=== PATIENT | female | born 1995 | race Caucasian/White ===

== ENCOUNTER 2018-11-07 13:13 | Emergency (ER) | payer OTHER ==
[~2018-11-07 13:13] MED LIST: CEPH250C37 PO; [UNRECOGNIZED DRUG - CODE]
[2018-11-07] MEDS ORDERED: NS(*) 0.9% 1000 ML BAG 1,000 ML IV ONE (13:29)
[2018-11-07] MEDS ORDERED: ONDANSETRON 4 MG/2 ML VIAL IVP ONE (13:30)
--- NOTE | 2018-11-07 14:03 | ER Report ---
History and Physical Time Seen By MD: 14:03 Hx. of Stated Complaint: NAUSEA, VOMITING AND DIARRHEA THAT STARTED AROUND 2 HOURS AGO. Allergies: Coded Allergies: No Known Drug Allergies (Unverified , 11/07/18) Home Meds Active Scripts Cephalexin (KEFLEX) 250 Mg Capsule, 2 TAB PO QID for 10 Days, #40 CAPSULE 0 Refills Take two 250 mg capsules four times daily x10 days. Prov:GABRIELLE WHITEHEAD DNP, PARTS IDENTIFICATION TECHNICIAN-BC 09/28/18 Reported Medications Vit/Iron Fumarate/FA ( Tablet) Unknown Strength Tablet, DAILY 09/28/18 Constitutional Vital Sign - Last 24 Hours 11/07/18 13:20 Temp 97.7 Pulse 87 Resp 24 B/P (MAP) 101/46 Pulse Ox 95 O2 Delivery Room Air Medical Decision Making Data Points Laboratory Hematology Test 11/07/18 13:20 11/07/18 13:57 Urine Color Red Urine Clarity Cloudy Urine pH 6 pH (4.8-9.5) Urine Specific Brush 1.030 Urine Protein 100 mg/dL (NEGATIVE) Urine Glucose (UA) Negative mg/dL (NEGATIVE) Urine Ketones 80 mg/dL (NEGATIVE) Urine Blood Large (NEGATIVE) Urine Nitrite Negative (NEGATIVE) Urine Bilirubin Negative (NEGATIVE) Urine Urobilinogen 0.2 mg/dL (0.2-1.9) Urine Leukocyte Esterase Negative (NEGATIVE) Urine RBC Tntc /HPF (0-2/HPF) Urine WBC None /HPF (0-5/HPF) Urine Squamous Epithelial Cells Moderate /LPF (</=FEW) Urine Transitional Epithelial Cells /LPF (NONE-FEW) Urine Bacteria Few /HPF (NONE-FEW) Urine Mucus Rare /HPF (NONE-FEW) Chemistry Test 11/07/18 13:20 11/07/18 13:57 Urine Color Red Urine Clarity Cloudy Urine pH 6 pH (4.8-9.5) Urine Specific Brush 1.030 Urine Protein 100 mg/dL (NEGATIVE) Urine Glucose (UA) Negative mg/dL (NEGATIVE) Urine Ketones 80 mg/dL (NEGATIVE) Urine Blood Large (NEGATIVE) Urine Nitrite Negative (NEGATIVE) Urine Bilirubin Negative (NEGATIVE) Urine Urobilinogen 0.2 mg/dL (0.2-1.9) Urine Leukocyte Esterase Negative (NEGATIVE) Urine RBC Tntc /HPF (0-2/HPF) Urine WBC None /HPF (0-5/HPF) Urine Squamous Epithelial Cells Moderate /LPF (</=FEW) Urine Transitional Epithelial Cells /LPF (NONE-FEW) Urine Bacteria Few /HPF (NONE-FEW) Urine Mucus Rare /HPF (NONE-FEW) Urinalysis Test 11/07/18 13:20 Urine Color Red Urine Clarity Cloudy Urine pH 6 pH (4.8-9.5) Urine Specific Brush 1.030 Urine Protein 100 mg/dL (NEGATIVE) Urine Glucose (UA) Negative mg/dL (NEGATIVE) Urine Ketones 80 mg/dL (NEGATIVE) Urine Blood Large (NEGATIVE) Urine Nitrite Negative (NEGATIVE) Urine Bilirubin Negative (NEGATIVE) Urine Urobilinogen 0.2 mg/dL (0.2-1.9) Urine Leukocyte Esterase Negative (NEGATIVE) Urine RBC Tntc /HPF (0-2/HPF) Urine WBC None /HPF (0-5/HPF) Urine Squamous Epithelial Cells Moderate /LPF (</=FEW) Urine Transitional Epithelial Cells /LPF (NONE-FEW) Urine Bacteria Few /HPF (NONE-FEW) Urine Mucus Rare /HPF (NONE-FEW) Depart Departure Latest Vital Signs Vital Signs Date Time Temp Pulse Resp B/P (MAP) Pulse Ox O2 Delivery O2 Flow Rate FiO2 11/07/18 13:20 97.7 87 24 101/46 95 Room Air Condition: Stable Disposition: HOME OR SELF-CARE Referrals: SHUBHAM ORONA MD (PCP) JOSE GRIFFIN Nov 07, 2018 14:03
[2018-11-07] MEDS ORDERED: fentaNYL CITR 100 MCG/2 ML AMP IVP ONE (14:05)
--- NOTE | 2018-11-07 14:08 | ER Report ---
History and Physical Time Seen By MD: 14:05 Hx. of Stated Complaint: NAUSEA, VOMITING AND DIARRHEA THAT STARTED AROUND 2 HOURS AGO. HPI/ROS CHIEF COMPLAINT: Right-sided abdominal pain HISTORY OF PRESENT ILLNESS: Patient is a 23-year-old female here with complaints of 2-3 hours of right-sided abdominal pain, associated nausea, diarrhea. Patient is afebrile at time of evaluation, dehydrated appearing. Patient is hemodynamically stable at this time and denies prior abdominal surgeries. Denies blood in the stools and is currently menstruating. Denies chest pain, shortness breath REVIEW OF SYSTEMS: Constitutional: No fever, + chills. Eyes: No discharge. ENT: No sore throat. Cardiovascular: No chest pain, no palpitations. Respiratory: No cough, no shortness of breath. Gastrointestinal: + right sided abdominal pain, + nausea Genitourinary: + menstruating Musculoskeletal: No back pain. Skin: No rashes. Neurological: No headache. Allergies: Coded Allergies: No Known Drug Allergies (Unverified , 11/07/18) Home Meds Active Scripts Metoclopramide Hcl (REGLAN) 10 Mg Tablet, 10 MG PO Q8H PRN for NAUSEA/VOMITING, #20 TAB Prov:CHLOE WARE DO 11/07/18 Cephalexin (KEFLEX) 250 Mg Capsule, 2 TAB PO QID for 10 Days, #40 CAPSULE 0 Refills Take two 250 mg capsules four times daily x10 days. Prov:GABRIELLE WHITEHEAD DNP, SALES MANAGER [employer] 09/28/18 Reported Medications Vit/Iron Fumarate/FA ( Tablet) Unknown Strength Tablet, DAILY 09/28/18 Constitutional Physical Exam General Appearance: The patient is alert, has no immediate need for airway protection and no signs of toxicity. Nontoxic in appearance Eyes: Pupils equal and round no pallor or injection. ENT, Mouth: Mucous membranes are dry, Respiratory: There are no retractions, lungs are clear to auscultation. Cardiovascular: Regular rate and rhythm. Gastrointestinal: Abdomen is soft and + tender in the right upper abdomen and midepigastric region, no masses, bowel sounds normal. Neurological: No focal neurological deficits Skin: Warm and dry, no rashes. Musculoskeletal: Neck is supple non tender. Extremities are nontender, nonswollen and have full range of motion. DIFFERENTIAL DIAGNOSIS: After history and physical exam differential diagnosis was considered for abdominal pain including but not limited to appendicitis, cholecystitis, gastritis and urinary tract infection. Medical Decision Making Data Points Laboratory Hematology Test 11/07/18 13:20 11/07/18 13:57 Urine Color Red Urine Clarity Cloudy Urine pH 6 pH (4.8-9.5) Urine Specific Crawford 1.030 Urine Protein 100 mg/dL (NEGATIVE) Urine Glucose (UA) Negative mg/dL (NEGATIVE) Urine Ketones 80 mg/dL (NEGATIVE) Urine Blood Large (NEGATIVE) Urine Nitrite Negative (NEGATIVE) Urine Bilirubin Negative (NEGATIVE) Urine Urobilinogen 0.2 mg/dL (0.2-1.9) Urine Leukocyte Esterase Negative (NEGATIVE) Urine RBC Tntc /HPF (0-2/HPF) Urine WBC None /HPF (0-5/HPF) Urine Squamous Epithelial Cells Moderate /LPF (</=FEW) Urine Transitional Epithelial Cells /LPF (NONE-FEW) Urine Bacteria Few /HPF (NONE-FEW) Urine Mucus Rare /HPF (NONE-FEW) Red Blood Count 4.78 M/uL (4.17-5.56) Mean Corpuscular Volume 90.5 fL (80.0-96.0) Mean Corpuscular Hemoglobin 30.8 pg (26.0-33.0) Mean Corpuscular Hemoglobin Concent 34.0 g/dL (32.0-36.0) Red Cell Distribution Width 13.2 % (11.5-14.5) Mean Platelet Volume 8.6 fL (7.2-11.1) Neutrophils (%) (Auto) 91.9 % (39.4-72.5) Lymphocytes (%) (Auto) 2.6 % (17.6-49.6) Monocytes (%) (Auto) 5.3 % (4.1-12.4) Eosinophils (%) (Auto) 0.1 % (0.4-6.7) Basophils (%) (Auto) 0.1 % (0.3-1.4) Nucleated RBC Relative Count (auto) 0.0 /100WBC Neutrophils # (Auto) 8.0 K/uL (2.0-7.4) Lymphocytes # (Auto) 0.2 K/uL (1.3-3.6) Monocytes # (Auto) 0.5 K/uL (0.3-1.0) Eosinophils # (Auto) 0.0 K/uL (0.0-0.5) Basophils # (Auto) 0.0 K/uL (0.0-0.1) Nucleated RBC Absolute Count (auto) 0.00 K/uL Sodium Level 141 mmol/L (137-145) Potassium Level 4.1 mmol/L (3.5-5.0) Chloride Level 112 mmol/L (98-107) Carbon Dioxide Level 17 mmol/L (22-31) Blood Urea Nitrogen 19 mg/dl (7-18) Creatinine 0.70 mg/dl (0.52-1.04) Glomerular Filtration Rate Calc > 60.0 Random Glucose 89 mg/dl (75-110) Calcium Level 8.9 mg/dl (8.4-10.2) Total Bilirubin 1.6 mg/dl (0.2-1.3) Aspartate Amino Transf (AST/SGOT) 24 U/L (0-35) Alanine Aminotransferase (ALT/SGPT) 23 U/L (0-56) Alkaline Phosphatase 92 U/L (0-126) Total Protein 7.5 g/dl (6.3-8.2) Albumin 4.3 g/dl (3.5-5.0) Lipase 178 U/L (23-300) Human Chorionic Gonadotropin, Qual Negative (NEGATIVE) Chemistry Test 11/07/18 13:20 11/07/18 13:57 Urine Color Red Urine Clarity Cloudy Urine pH 6 pH (4.8-9.5) Urine Specific Crawford 1.030 Urine Protein 100 mg/dL (NEGATIVE) Urine Glucose (UA) Negative mg/dL (NEGATIVE) Urine Ketones 80 mg/dL (NEGATIVE) Urine Blood Large (NEGATIVE) Urine Nitrite Negative (NEGATIVE) Urine Bilirubin Negative (NEGATIVE) Urine Urobilinogen 0.2 mg/dL (0.2-1.9) Urine Leukocyte Esterase Negative (NEGATIVE) Urine RBC Tntc /HPF (0-2/HPF) Urine WBC None /HPF (0-5/HPF) Urine Squamous Epithelial Cells Moderate /LPF (</=FEW) Urine Transitional Epithelial Cells /LPF (NONE-FEW) Urine Bacteria Few /HPF (NONE-FEW) Urine Mucus Rare /HPF (NONE-FEW) White Blood Count 8.7 k/uL (4.5-11.0) Red Blood Count 4.78 M/uL (4.17-5.56) Hemoglobin 14.7 g/dL (12.0-16.0) Hematocrit 43.2 % (34.0-47.0) Mean Corpuscular Volume 90.5 fL (80.0-96.0) Mean Corpuscular Hemoglobin 30.8 pg (26.0-33.0) Mean Corpuscular Hemoglobin Concent 34.0 g/dL (32.0-36.0) Red Cell Distribution Width 13.2 % (11.5-14.5) Platelet Count 179 K/uL (150-450) Mean Platelet Volume 8.6 fL (7.2-11.1) Neutrophils (%) (Auto) 91.9 % (39.4-72.5) Lymphocytes (%) (Auto) 2.6 % (17.6-49.6) Monocytes (%) (Auto) 5.3 % (4.1-12.4) Eosinophils (%) (Auto) 0.1 % (0.4-6.7) Basophils (%) (Auto) 0.1 % (0.3-1.4) Nucleated RBC Relative Count (auto) 0.0 /100WBC Neutrophils # (Auto) 8.0 K/uL (2.0-7.4) Lymphocytes # (Auto) 0.2 K/uL (1.3-3.6) Monocytes # (Auto) 0.5 K/uL (0.3-1.0) Eosinophils # (Auto) 0.0 K/uL (0.0-0.5) Basophils # (Auto) 0.0 K/uL (0.0-0.1) Nucleated RBC Absolute Count (auto) 0.00 K/uL Glomerular Filtration Rate Calc > 60.0 Calcium Level 8.9 mg/dl (8.4-10.2) Total Bilirubin 1.6 mg/dl (0.2-1.3) Aspartate Amino Transf (AST/SGOT) 24 U/L (0-35) Alanine Aminotransferase (ALT/SGPT) 23 U/L (0-56) Alkaline Phosphatase 92 U/L (0-126) Total Protein 7.5 g/dl (6.3-8.2) Albumin 4.3 g/dl (3.5-5.0) Lipase 178 U/L (23-300) Human Chorionic Gonadotropin, Qual Negative (NEGATIVE) Urinalysis Test 11/07/18 13:20 Urine Color Red Urine Clarity Cloudy Urine pH 6 pH (4.8-9.5) Urine Specific Crawford 1.030 Urine Protein 100 mg/dL (NEGATIVE) Urine Glucose (UA) Negative mg/dL (NEGATIVE) Urine Ketones 80 mg/dL (NEGATIVE) Urine Blood Large (NEGATIVE) Urine Nitrite Negative (NEGATIVE) Urine Bilirubin Negative (NEGATIVE) Urine Urobilinogen 0.2 mg/dL (0.2-1.9) Urine Leukocyte Esterase Negative (NEGATIVE) Urine RBC Tntc /HPF (0-2/HPF) Urine WBC None /HPF (0-5/HPF) Urine Squamous Epithelial Cells Moderate /LPF (</=FEW) Urine Transitional Epithelial Cells /LPF (NONE-FEW) Urine Bacteria Few /HPF (NONE-FEW) Urine Mucus Rare /HPF (NONE-FEW) EKG/Imaging Imaging PATIENT NAME: Araceli Snider : 1995 MR: [id number] V: [id number] EXAM DATE: [id number] ORDERING PHYSICIAN: CHLOE WARE TECHNOLOGIST: Location: [facility] [place] Patient: Araceli Sniedr : 1995 Visit/Account:[id number] Date of Sevice: 11/07/2018 ABDOMEN/PELVIS WITH CONTRAST HISTORY: Right lower quadrant pain with sudden onset x3 hours TECHNIQUE: Following administration of IV contrast contiguous axial images acquired through the abdomen/pelvis. Coronal and sagittal reformatting also performed.Dose Lowering Technique One of the following dose optimization techniques was utilized in the performa nce of this exam: Automated exposure control; adjustment of the mA and/or kV according to the patient's size; or use of an iterative reconstruction technique. Specific details can be referenced in the facility's radiology CT exam operational policy. CONTRAST: 75 mL Isovue-370 COMPARISON: None. FINDINGS: Visualized lung bases: Negative. Hepatobiliary: Negative. Spleen: Negative. Adrenals: Negative. Pancreas: Negative. Kidneys ureters or bladder: Kidneys appear grossly unremarkable. Bladder is mostly decompressed therefore not ideally evaluated Genitalia: There is a retroverted uterus containing an IUD GI: The appendix is not well seen. By history the patient's pain is more mid right abdomen and the white count is not elevated Vessels/spaces/nodes: There are numerous collateral vessels in the pelvis Bones/soft tissues: There is an incidental pectus excavatum deformity the anterior chest wall Additional findings: None pertinent. IMPRESSION: No evidence of urolithiasis or hydronephrosis Numerous collateral vessels are noted in the pelvis The appendix is not well seen due to a paucity of internal fat planes. By history however the patient's pain is more mid right abdomen and white count is not elevated therefore appendicitis seems less likely Report Dictated By: Carolyn Vanegas MD at 11/07/2018 2:49 PM Report E-Signed By: Carolyn Vanegas MD at 11/07/2018 2:58 PM WSN:[email or web address] ED Course/Re-evaluation ED Course Patient is a 23-year-old female here with right-sided abdominal pain. CT imaging showed no acute findings. Patient was given fentanyl Zofran and fluids. She is discharged in stable condition with a prescription for Reglan. PCP follow-up recommended Decision to Disposition Date: Nov 07, 2018 Decision to Disposition Time: 15:13 Depart Departure Latest Vital Signs Impression: Primary Impression: Abdominal pain Condition: Improved Disposition: HOME OR SELF-CARE Referrals: SHUBHAM ORONA MD (PCP) New Scripts Metoclopramide Hcl (REGLAN) 10 Mg Tablet 10 MG PO Q8H PRN for NAUSEA/VOMITING, #20 TAB Prov: CHLOE WARE DO 11/07/18 Patient Instructions: Abdominal Pain (ED) Additional Instructions: Please drink plenty of water. You may take 1 tablet of Reglan every 8 hours as needed for inability to keep down food or fluid, nausea, vomiting. Please return promptly if you develop worsening abdominal pain, fevers, inability to keep down food or fluids, blood in the stools. Please follow-up with her family doctor in the next 24-48 hours for reevaluation. CHLOE WARE DO Nov 07, 2018 14:08
[2018-11-07 14:27] LABS: PLATELET COUNT, AUTOMATED 179 K/uL (150-450)
[2018-11-07 15:00] VITALS: BP 82/39
--- NOTE | 2018-11-07 15:04 | RADIOLOGY IMAGING REPORT ---
FACILITY: [facility] PATIENT NAME: Araceli Snider : 1995 MR: [id number] V: [id number] EXAM DATE: ORDERING PHYSICIAN: CHLOE WARE TECHNOLOGIST: Location: [facility] Patient: Araceli Snider : 1995 Visit/Account:[id number] Date of Sevice: 11/07/2018 ABDOMEN/PELVIS WITH CONTRAST HISTORY: Right lower quadrant pain with sudden onset x3 hours TECHNIQUE: Following administration of IV contrast contiguous axial images acquired through the abdom en/pelvis. Coronal and sagittal reformatting also performed.Dose Lowering Technique One of the following dose optimization techniques was utilized in the performance of this exam: Autom ated exposure control; adjustment of the mA and/or kV according to the patient's size; or use of an i terative reconstruction technique. Specific details can be referenced in the facility's radiology C T exam operational policy. CONTRAST: 75 mL Isovue-370 COMPARISON: None. FINDINGS: Visualized lung bases: Negative. Hepatobiliary: Negative. Spleen: Negative. Adrenals: Negative. Pancreas: Negative. Kidneys ureters or bladder: Kidneys appear grossly unremarkable. Bladder is mostly decompressed ther efore not ideally evaluated Genitalia: There is a retroverted uterus containing an IUD GI: The appendix is not well seen. By history the patient's pain is more mid right abdomen and the white count is not elevated Vessels/spaces/nodes: There are numerous collateral vessels in the pelvis Bones/soft tissues: There is an incidental pectus excavatum deformity the anterior chest wall Additional findings: None pertinent. IMPRESSION: No evidence of urolithiasis or hydronephrosis Numerous collateral vessels are noted in the pelvis The appendix is not well seen due to a paucity of internal fat planes. By history however the patien t's pain is more mid right abdomen and white count is not elevated therefore appendicitis seems less likely Report Dictated By: Carolyn Vanegas MD at 11/07/2018 2:49 PM Report E-Signed By: Carolyn Vanegas MD at 11/07/2018 2:58 PM WSN:[email or web address]
[2018-11-07] MEDS ORDERED: METO-734 PO (15:15)
== END 2018-11-07 15:28 | disposition home or self-care (01) ==
LOC: ER 13:25
DX: R10.31 Right lower quadrant pain (principal)
CPT/HCPCS: 36415; 74177; 81001; 83690; 84703; 85025; 96361; 96374; 99284; J2405; J7030; 82040; 82247; 82310; 82374; 82435; 82565; 82947; 84075; 84132; 84155; 84295; 84450; 84460; 84520; Q9967

== ENCOUNTER → 2019-01-17 | Outpatient (CLI) | payer OTHER ==
[~2019-01-17] MED LIST changes: +METO-734 PO
== END ==
LOC: LAB 08:36
PROVIDERS: ATTEND Family Medicine
DX: N92.0 Excessive and frequent menstruation with regular cycle (principal); R53.83 Other fatigue; F34.9 Persistent mood [affective] disorder, unspecified; R20.2 Paresthesia of skin
CPT/HCPCS: 36415; 82040; 82247; 82248; 82310; 82374; 82435; 82565; 82947; 84075; 84132; 84155; 84295; 84443; 84450; 84460; 84520; 85027